=== PATIENT | female | born 1975 | race African-American/Black ===

== ENCOUNTER 2022-10-09 08:32 | Emergency (ER) | payer MEDICAID, OTHER ==
[~2022-10-09] VITALS: Ht 170.2 cm; Wt 87.6 kg
[2022-10-09 09:04] VITALS: BP 154/86
[2022-10-09] MEDS ORDERED: TOBR0.3S LEFTEYE (09:08)
[2022-10-09] MEDS ORDERED: CEPH-510 PO (09:08)
[2022-10-09] MEDS ORDERED: TRIA0.02 TOP (09:08)
== END 2022-10-09 09:17 | disposition home or self-care (01) ==
LOC: ER 08:32
DX: H00.014 Hordeolum externum left upper eyelid (principal); Z88.0 Allergy status to penicillin